=== PATIENT | female | born 1950 | race Caucasian/White ===

== ENCOUNTER → 2016-12-28 | Outpatient (CLI) | payer BC ==
--- NOTE | 2016-12-28 10:33 | RADRPT ---
PROCEDURE: XR pelvis/right hip. CLINICAL INDICATION: Hip pain TECHNIQUE: AP pelvis/AP and lateral right hip views performed COMPARISON: No prior studies are available for comparison. FINDINGS: Anterior and posterior lower lumbosacral fixation. There is severe right hip osteoarthrosis and moderate left hip osteoarthrosis. This is associated wi th joint space narrowing, subchondral sclerosis , subchondral cyst formation and osteophytosis. The re is normal mineralization. No fractures or osseous lesions are identified. The soft tissues are unremarkable. IMPRESSION: Severe right hip osteoarthrosis. Moderate left hip osteoarthrosis RPTAT: HGDB .Andrew Byrd MD, MD Date Time Electronically viewed and signed by .Andrew Byrd MD, on 12/28/2016 10:33 .B/
== END | disposition home or self-care (01) ==
LOC: HKI 08:54
PROVIDERS: ATTEND Orthopaedic Surgery
DX: M16.11 Unilateral primary osteoarthritis, right hip (principal); M25.551 Pain in right hip; M51.36 Other intervertebral disc degeneration, lumbar region; F17.200 Nicotine dependence, unspecified, uncomplicated; Z98.1 Arthrodesis status; Z91.81 History of falling
CPT/HCPCS: 73502; G0463

== ENCOUNTER → 2017-02-17 | Outpatient (CLI) | payer BC | END | disposition home or self-care (01) | LOC: HKI 10:38 | PROVIDERS: ATTEND Orthopaedic Surgery | DX: M25.551 Pain in right hip (principal); M16.11 Unilateral primary osteoarthritis, right hip; M51.36 Other intervertebral disc degeneration, lumbar region; I10 Essential (primary) hypertension | CPT/HCPCS: G0463 ==

== ENCOUNTER 2017-02-23 05:16 | Inpatient (IN) | payer BC ==
--- NOTE | 2017-02-17 17:47 | CONS ---
DATE OF ADMISSION: 02/23/2017 DATE OF CONSULTATION: TYPE OF CONSULTATION: Internal Medicine The patient is being admitted on 02/23/[address] Garrett for planned right total hip replacement. HISTORY OF PRESENT ILLNESS: This is a 66-year-old gentleman with severe DJD who is to undergo the a forementioned surgery. For the details of his orthopedic history, please see the full evaluation pe r Dr. Garrett. Medically, the patient is in good health, has mild hyperlipidemia for which he has discontinued his statin. He has been a smoker, but he did stop it for the past 4 to 6 weeks going into surgery and he is havi ng no withdrawal. There are no recent fevers, chills, sweats, nausea or vomiting. There is no history of any cardiopulmonary disease. He denies any chest pain, angina, syncope, pres yncope or any palpitations. He has recently been found to be somewhat hyperglycemic, but is not on any medication for that and r emains asymptomatic. PAST MEDICAL HISTORY: Please see full dictated problem list. ALLERGIES: NONE. HABITS: Tobacco: None. Alcohol: None. CURRENT MEDICATIONS: [place] as needed. REVIEW OF SYSTEMS: As per HPI. PHYSICAL EXAMINATION: GENERAL: Fit-appearing gentleman in no acute distress. VITAL SIGNS: He is afebrile. Blood pressure 138/76, heart rate 72 and regular, respirations 12 and unlabored. SKIN: Warm, well perfused. HEAD: Normocephalic, atraumatic. EYES: Pupils are round and reactive. Extraocular movements are full. Sclerae anicteric. PHARYNX: No lesions. NECK: JVP is not distended. No adenopathy or thyromegaly. Carotids are 2+, no bruits. BACK: No CVAT. LUNGS: Clear. HEART: S1, S2, regular rate and rhythm, no murmurs. ABDOMEN: Soft and nontender. Normoactive bowel sounds. No organomegaly. EXTREMITIES: No cyanosis, clubbing or edema. Distal pulses are intact. LABORATORY DATA: Please see enclosed. PROBLEM LIST: 1. Degenerative joint disease, right hip, for planned right total hip replacement. 2. Chronic low back pain, status post multiple back surgeries in the past. 3. Most recent back surgery in July of 2007 with hardware exchange. 4. Hyperlipidemia. The patient refuses treatment. 5. Hypertension, currently controlled off medicines. 6. Hyperglycemia. A1c was 6.3 in 10/2016. 7. Degenerative joint disease of the knees as well. RECOMMENDATIONS: 1. The patient is medically cleared for surgery. 2. I will be happy to follow him in the postop period. 3. Sugars will be followed and dealt with accordingly. Dictated By: GLISON ROMANO MD, MM/ELAN Conf#: [id number] DID#: [id number]
[2017-02-22 09:04] VITALS: BMI 32.3
[2017-02-23] VITALS (24 sets, daily range): BP systolic 96–159; BP diastolic 44–82; PULSE 64–92; RESP 12–18; Ht 177.8 cm; Wt 88.5 kg
[~2017-02-23] VITALS: Ht 177.8 cm; Wt 88.5 kg
[2017-02-23] MEDS ORDERED: LACTATED RINGER'S 1,000 ML IV SCH (06:00)
[2017-02-23] MEDS ORDERED: OXYC-209 PO (06:12)
[2017-02-23] MEDS: oxyCODONE (CR) 10 MG TAB [oxyCONTIN] X1 DOSE PO SCH ×2 (06:13→14:59)
--- NOTE | 2017-02-23 06:56 | RADRPT ---
PROCEDURE: XR Pelvis. CLINICAL INDICATION: Hip pain TECHNIQUE: Single AP view of the pelvis. COMPARISON: 02/22 FINDINGS: Lumbosacral fusion hardware is again seen and remains intact. Bone mineralization is decreased. De generative change of the right hip is again seen with superior joint space narrowing, osteophytes, a nd periarticular sclerosis. There is lateral uncovering of the femoral head. No fracture or disloc ation is seen. Vascular calcification is seen. IMPRESSION: Osteoarthritic change of the right hip again seen. RPTAT: HLBE Physician Nick Date Time Electronically viewed and signed by Laura Coe Physician on 02/23/2017 06:55 LE/
[2017-02-23] MEDS ORDERED: PREGABALIN 300 MG PO X1 PO SCH (07:00)
[2017-02-23] MEDS ORDERED: LIDOCAINE 2% (SDV) 5 ML INJ ONE (07:00)
[2017-02-23] MEDS ORDERED: PAIN COCKTAIL-CEFUROXIME IRR SCH ×7 (07:00)
[2017-02-23] MEDS ORDERED: CELECOXIB 400 MG PO X1 DOSE PO SCH (07:00)
[2017-02-23] MEDS ORDERED: EXPAREL NOTE (BUPIVICAINE LIPOSOMAL) XX SCH (07:00)
[2017-02-23] MEDS ORDERED: CEFAZOLIN 2 GM/50 ML (PMX) 50 ML IVPB SCH (07:00)
[2017-02-23] MEDS ORDERED: BUPIVACAINE LIPOSOME/PF 266 MG/20 ML VIAL INFIL SCH (07:00)
[2017-02-23] MEDS ORDERED: traMADOL 50 MG TAB X 1 DOSE PO SCH (07:00)
[2017-02-23] MEDS ORDERED: TRANEXAMIC ACID 750 MG in SOD CHLORIDE 0.9% 100 ML IVPB SCH (07:00)
[2017-02-23] MEDS ORDERED: TRANEXAMIC ACID 750 MG in SOD CHLORIDE 0.9% 92.5 ML IV SCH (07:00)
[2017-02-23] MEDS ORDERED: NEOSTIGMINE 3 MG/3 ML SYRINGE ONE (07:04)
[2017-02-23] MEDS ORDERED: ROCURONIUM 50 MG INJ ONE (07:04)
[2017-02-23] MEDS ORDERED: GLYCOPYRROLATE 0.4 MG INJ ONE (07:04)
[2017-02-23] MEDS ORDERED: CEFAZOLIN 1 GM INJ ONE ×3 (07:04→07:31)
[2017-02-23] MEDS ORDERED: PROPOFOL 20 ML ONE (07:04)
[2017-02-23] MEDS ORDERED: DEXAMETHASONE 4 MG/ML 1 ML INJ ONE (07:05)
[2017-02-23] MEDS ORDERED: FENTAnyl 50 MCG/ML VIAL ONE (07:05)
[2017-02-23] MEDS ORDERED: MIDAZOLAM 1 MG/ML 2 ML INJ ONE (07:05)
[2017-02-23] MEDS ORDERED: ONDANSETRON 4 MG INJ ONE (07:05)
--- NOTE | 2017-02-23 07:13 | HPN ---
Date/Time of Note Date/Time of Note DATE: 02/23/17 TIME: 07:13 Interval H&P Admission Note Pt. seen H&P reviewed: No system changes No change from H&P on 02/17/17 by ELI Rodriguez MD Feb 23, 2017 07:13
[2017-02-23] MEDS ORDERED: PHENYLephrine (100 MCG/ML) 5ML SYG ONE (07:28)
[2017-02-23] MEDS ORDERED: VANCOMYCIN 1 GM INJ ONE (08:01)
[2017-02-23] MEDS ORDERED: POLYMYXIN B 500000 UNIT INJ ONE (08:01)
[2017-02-23] MEDS ORDERED: MEPERIDINE 25 MG INJ IV PRN (08:30)
[2017-02-23] MEDS ORDERED: HYDROmorphONE (0.2 MG/ML) 10ML SYG IV PRN ×2 (08:30)
[2017-02-23] MEDS ORDERED: DIPHENHYDRAMINE 50 MG INJ IV PRN (08:30)
[2017-02-23] MEDS ORDERED: TRIMETHOBENZAMIDE 100 MG/ML VIAL IM PRN (08:30)
[2017-02-23] MEDS ORDERED: hydrALAzine 20 MG INJ IV PRN (08:30)
[2017-02-23] MEDS ORDERED: ONDANSETRON 4 MG INJ IV PRN ×2 (08:30→10:00)
[2017-02-23] MEDS ORDERED: FENTAnyl 50 MCG/ML VIAL IV PRN ×3 (08:30)
[2017-02-23] MEDS ORDERED: EPHEDrine SULFATE 50 MG/5 ML SYG IV PRN (08:30)
[2017-02-23] MEDS ORDERED: MIDAZOLAM 1 MG/ML 2 ML INJ IV PRN (08:30)
[2017-02-23] MEDS ORDERED: LABETALOL HCL 20MG INJ IV PRN (08:30)
[2017-02-23] MEDS ORDERED: BACITRACIN 50000 UNITS INJ IRR ONE (08:43)
[2017-02-23] MEDS ORDERED: EPINEPHrine 100 MCG/10 ML SYG IV ONE (09:51)
[2017-02-23] MEDS ORDERED: HYDROCODONE/APAP (5/325) TAB PO PRN ×2 (10:00)
[2017-02-23] MEDS ORDERED: ASPIRIN (EC) 325 MG TAB PO ONE (10:00)
[2017-02-23] MEDS ORDERED: NACL 0.9% 3 ML SYG IV SCH (10:00)
[2017-02-23] MEDS ORDERED: NA PHOSPHATE/BIPHOS 133 ML ENEMA PR PRN (10:00)
[2017-02-23] MEDS ORDERED: MAGNESIUM HYDROXIDE 30ML CUP PO PRN (10:00)
[2017-02-23] MEDS ORDERED: BISACODYL 10 MG SUPP PR PRN (10:00)
[2017-02-23] MEDS ORDERED: DIPHENHYDRAMINE 25 MG CAP PO PRN (10:00)
--- NOTE | 2017-02-23 10:06 | OPR ---
Date/Time of Note Date/Time of Note DATE: 02/23/17 TIME: 10:05 Operative Report Free Text/Dictation Dictation # [id number] Procedure Date: Feb 24, 2017 Preoperative Diagnosis Right Hip OA Postoperative Diagnosis Same Operation Performed Right Anterior DOMINIQUE Surgeon: ELI DE GUZMAN MD household assistant: AUBRIE NELSON PA-C Anesthesia: general, spinal Anesthesiologist: Ike Greer M.D. Estimated Blood Loss: 250 - 300 ml's Specimens Femoral Head Tubes/Drains Hemovac x 1 Complications: None Pt Condition Post Procedure: stable Disposition: PACU ELI DE GUZMAN MD Feb 23, 2017 10:06
[2017-02-23] MEDS ORDERED: ALBUTEROL 0.083% (NEB) 2.5 MG/3 ML AMP HHN STA (10:11)
[2017-02-23] MEDS ORDERED: ALBUTEROL 0.083% (NEB) 2.5 MG/3 ML AMP ONE (10:13)
--- NOTE | 2017-02-23 10:35 | RADRPT ---
PROCEDURE: XR Pelvis. CLINICAL INDICATION: Hip pain TECHNIQUE: Single AP view performed. COMPARISON: No prior studies are available for comparison. FINDINGS: There is a postoperative right total hip replacement. There is no evidence of loosening of the prost hesis. No hardware failure is identified. There are postoperative soft tissue changes. A drain is i n place. Skin amira are present laterally. Lower lumbar fusion hardware. There is moderate left hip osteoarthrosis. This is associated with joint space narrowing, subchondra l sclerosis and osteophytosis. There is normal osseous mineralization. No fractures or osseous les ions are identified. The soft tissues are unremarkable. IMPRESSION: Postoperative right total hip replacement Postoperative soft tissue changes Moderate left hip osteoarthrosis. RPTAT: HGDB .Andrew Byrd MD, Date Time Electronically viewed and signed by .Andrew Byrd MD, on 02/23/2017 10:34 .B/
--- NOTE | 2017-02-23 10:36 | OPR ---
DATE OF OPERATION: 02/23/2017 PREOPERATIVE DIAGNOSIS: Right hip osteoarthritis. POSTOPERATIVE DIAGNOSIS: Right hip osteoarthritis. PROCEDURE PERFORMED: Right anterior total hip arthroplasty. SURGEON: Eli Garrett MD DIETETIC TECH: CHRISTOPHER Herrera COMPONENTS USED: DePuy size 56 mm Gription Riverhead cup, 56/40 neutral AltrX polyethylene liner, si ze 6 high Actis stem, 40 +1.5 ceramic head. ANESTHESIA: Spinal plus general endotracheal intubation, plus periarticular injection. ANESTHESIOLOGIST: Ike Greer MD ESTIMATED BLOOD LOSS: 300 mL. INTRAVENOUS FLUIDS: 4 liters of crystalloid. SPECIMENS: Femoral head. DRAINS: Hemovac x1. COMPLICATIONS: None. DISPOSITION: The patient tolerated the procedure well and was taken to the recovery room in stable condition. INDICATIONS: The patient is a 66-year-old gentleman who has had progressive worsening pain in the r ight hip with radiographic evidence of severe osteoarthritis. He has failed nonsurgical means of tr eatment to control his pain including activity modifications, pain medications and ambulatory assist devices. Despite these measures, he has had worsening pain. I felt he would benefit from a total hip arthroplasty through an anterior approach. The risks, benefits, and alternatives of the procedure were explained in detail to the patient. I e xplained the risks of the surgery to include, but not be limited to: bleeding and possible need for blood transfusion; infection; pain; stiffness; neurovascular injury with possible numbness, weakness , and/or paralysis anywhere from the hip down to the toes; fracture; instability; dislocation; leg l ength inequality; wear and/or loosening of the prosthesis and possible need for future revision; blo od clots; pulmonary embolism; and anesthetic complications such as heart attack, stroke, GI bleed, p neumonia, and/or . Ample time was allowed for the patient to ask questions, all of which were addressed and answered. The patient understood the risks involved and wished to proceed. Informed c onsent was signed prior to the procedure. PROCEDURE: The patient's right hip was initialed with a marking pen in the preoperative area to iden tify the correct operative site. The patient was brought to the operating room and transferred [facility] the [facility] where a spinal anesthetic was administered. The patient was then anesthetized and intubated. A Umanzor catheter was placed. Both feet were placed into well padd ed boots which were then placed into the leg holders of the traction booms. A timeout was performed to confirm that the right side was the correct operative site. The patient was given 2 g of intrav enous Ancef within one hour prior to the procedure. The operative hip was prepped and draped in the usual sterile fashion. A 10 cm oblique incision was made over the anterior aspect of the hip and carried down through subcu taneous tissue and fat with sharp dissection. The tensor fascia kiana was incised along the length o f the wound. The tensor fascia muscle was retracted laterally and the sartorius medially. The anter ior circumflex vessels were identified and tied off with 2-0 silk suture and coagulated with the Combat Stroke brock Link casing crew. The rectus femoris was elevated off the anterior capsule and an anterior capsu lectomy performed. A femoral neck osteotomy was made and the head removed from the acetabulum. The acetabulum was denuded of cartilage circumferentially, as was the femoral head. Retractors were pl aced around the acetabulum. The remnants of the labrum and ligamentum teres were excised. I reamed the acetabulum to the medial wall and then went into an anatomic position and increased the reamer size in 2 mm increments until I got a good bite and was down to bleeding subchondral bone. The River[place] cup was opened and impacted into the acetabulum and sat flush circumferentially, gettin g a good bite. C-arm imaging showed it had about 40 to 45 degrees of abduction and 20 degrees of ant eversion. The real liner was opened and impacted into the acetabulum and sat flush circumferentiall y. Attention was turned towards the femur. The operative leg was carefully lowered to the floor with the leg adducted. The foot was then exter gavin rotated to approximately 110 degrees. A posteromedial release was performed to optimize expos ure. The femoral hook was placed underneath the proximal femur and the hydraulic lift was then used to elevate the femur up out of the wound. The christel cutter osteotome was used to remove the remai josi overhanging greater trochanter. The femur was then broached, going up in one size increments u ntil it sat flush with the neck cut and a stable fit was achieved. The trial neck and head were ass embled and reduced into the acetabulum. Fluoroscopic imaging showed the components to be in good pos ition and the leg lengths and offsets to be equal. At this point, the trial was dislocated and the trial broach removed. The canal was irrigated and d ried. The real stem was opened and impacted into the femur. The trunnion was irrigated and dried, a nd the real femoral head was impacted onto the trunnion, and reduced into the acetabulum. The soft tissues were infiltrated with a mixture of 150 mg of 0.5% bupivacaine, 8 mg of Duramorph, 3 00 mcg of epinephrine, 30 mg of Toradol, 100 mcg of clonidine, 750 mg of cefuroxime and 86 mL of nor mal saline, followed by an injection of 266 mg of liposomal bupivacaine. At this point the hip was irrigated with a mixture of Betadine/saline and then antibiotic saline with pulsatile lavage. A Hem ovac drain was placed in the deep portion of the wound and brought out the anterolateral thigh. Ther e was good hemostasis. The tensor fascia kiana was repaired with a running #1 Vicryl. The deep fat layer was irrigated and closed with 2-0 Stratafix and the subcutaneous layer closed with 3-0 Vicryl and the skin was closed with amira and then sealed with Dermabond. The drain was secured with 3-0 nylon. The sponge and needle counts were correct at the end of the case. The wound was covered with an occ lusive dressing. The patient was awakened, extubated, and taken to the recovery room in stable cond ition. Dictated By: ELI TEJADA/ELAN Conf#: [id number] DID#: [id number]
--- NOTE | 2017-02-23 10:36 | RADRPT ---
PROCEDURE: XR right hip. CLINICAL INDICATION: Hip pain TECHNIQUE: AP view available for review. COMPARISON: 02/23/2017 FINDINGS: There is a postoperative right total hip replacement. There is no evidence of loosening of the prost hesis. There is no evidence of hardware failure. There is normal mineralization, architecture and al ignment. No fractures are identified. No osseous lesions are present. The joints are unremarkable . There are postoperative soft tissue changes. A drain is in place. Skin amira are present late rally. IMPRESSION: Postoperative right total hip replaced Postoperative soft tissue changes RPTAT: HGDB .Andrew Byrd MD, Date Time Electronically viewed and signed by .Andrew Byrd MD, on 02/23/2017 10:35 .B/
[2017-02-23 10:37] LABS: POTASSIUM 3.7 mmol/L (3.5-5.1)
[2017-02-23 10:38] LABS: HEMOGLOBIN 11.6 g/dl (14.0-18.0)
[2017-02-23 10:40] LABS: CREATININE 0.49 mg/dl (0.61-1.24)
--- NOTE | 2017-02-23 10:42 | PN ---
Date/Time of Note Date/Time of Note DATE: 02/23/17 TIME: 10:41 Assessment/Plan Lines/Catheters IV Catheter Type (from Nrsg): Peripheral IV Assessment/Plan Assessment/Plan Stable POD #1, s/p right anterior DOMINIQUE -cont abx -pain meds as needed -ASA/SCDs for DVT prophylaxis -OOB with PT -check AM labs -monitor drain -d/c awan in AM XR of the right hip is pending at this time Subjective 24 Hr Interval Summary Stable in PACU. Drowsy from anesthesia. Denies any significant pain. Moving all extremities. Exam/Review of Systems Vital Signs Vitals Vital Signs Date Time Temp Pulse Resp B/P Pulse Ox O2 Delivery O2 Flow Rate FiO2 02/23/17 10:15 93 18 Nasal Cannula 2.0 02/23/17 10:00 98.7 02/23/17 05:50 159/82 94 Intake and Output 02/22/17 02/22/17 02/23/17 15:00 23:00 07:00 Intake Total 0 ml Balance 0 ml Exam Free Text/Dictation Hemovac: minimal Dressing dry Incision clean, dry, and intact without redness or drainage 5/5 Quadriceps, Tibialis Anterior, EHL, Gastroc, Soleus, Peroneals Normal sensation Palpable DT/PT, CR <2 sec No distal edema Results Result Diagram: 02/23/17 1015 AUBRIE NELSON PA-C Feb 23, 2017 10:42
[2017-02-23] MEDS: CEFAZOLIN 2 GM/50 ML (PMX) 50 ML IVPB SCH ×2 (11:24→18:13)
--- NOTE | 2017-02-23 12:33 | CONS ---
Date/Time of Note Date/Time of Note DATE: 02/23/17 TIME: 12:28 Assessment/Plan Assessment/Plan Problems: (1) Degenerative joint disease of right hip Comment: is now s/p Rt THR... doing well (2) Hip joint replacement status Comment: s/p R THR... seen in PACU... hemodyn stable (3) HTN (hypertension) Comment: currently controlled off meds (4) Hyperlipidemia Comment: refused meds in the past... so follow (5) Hyperglycemia Comment: new dx.. on diet now... mild Consultation Date/Type/Reason Admit Date/Time Feb 23, 2017 at 05:16 Date of Consultation: Feb 23, 2017 Type of Consultation: medicine Reason for Consultation post op care Hx of Present Illness pt seen post op in the PACU, s/p Rt THR> doing well... no cp or sob.. VSS... min pain Constitutional: no complaints Eyes: no complaints ENT: no complaints Respiratory: no complaints Cardiovascular: no complaints Gastrointestinal: no complaints Genitourinary: no complaints Skin: no complaints Neurologic: no complaints Social History Smoking Status: Former smoker Exam/Review of Systems Vital Signs Vitals Vital Signs Date Time Temp Pulse Resp B/P Pulse Ox O2 Delivery O2 Flow Rate FiO2 02/23/17 11:53 72 15 111/59 94 Nasal Cannula 3.0 02/23/17 10:00 98.7 Exam Head: normocephalic Eyes: nl conjunctiva ENMT: nl external ears & nose Neck: supple Respiratory: clear to auscultation Cardiovascular: regular rate and rhythm Gastrointestinal: nl liver, spleen, non-tender, soft Musculoskeletal: nl extremities to inspection (drain in place Rt hip... intact n/v RLE) Results Result Diagram: 02/23/17 1015 02/23/17 1015 Results 24 hrs Laboratory Tests Test 02/23/17 10:08 02/23/17 10:15 Bedside Glucose 166 Hemoglobin 11.6 L Hematocrit 35.0 L Sodium Level 137 Potassium Level 3.7 Chloride Level 104 Carbon Dioxide Level 26 Anion Gap 11 Blood Urea Nitrogen 12 Creatinine 0.49 L Glucose Level 161 Calcium Level 8.0 L Medications Medications Current Medications Lactated Ringer's (Lr) 1,000 ml @ 100 mls/hr Q10H IV Last administered on 02/23t 06:15; Admin Dose 100 MLS/HR; Start 02/23/17 at 06:00; Stop 02/23/17 at 15 :59 Oxycodone HCl (Oxycontin) 10 mg PRE-OP PO Last administered on 02/23/17 06:13 ; Admin Dose 10 MG; Start 02/23/17 at 07:00; Stop 02/23/17 at 16:00 Pregabalin (Lyrica) 300 mg PRE-OP PO Last administered on 02/23/17 06:12; Admin Dose 300 MG; Start 02/23/17 at 07:00; Stop 02/23/17 at 16:00 Celecoxib (Celebrex) 400 mg PRE-OP PO Last administered on 02/23/17 06:13; Admin Dose 400 MG; Start 02/23/17 at 07:00; Stop 02/23/17 at 16:00 Tramadol HCl 50 mg 50 mg PRE-OP PO Last administered on 02/23/17 06:16; Admin Dose 50 MG; Start 02/23/17 at 07:00; Stop 02/23/17 at 16:00 Cefazolin Sodium/ Dextrose 50 ml @ 100 mls/hr PRE-OP IVPB ; Start 02/23/17 at 07:00; Stop 02/23/17 at 16:00 Tranexamic Acid 750 mg/Sodium Chloride 100 ml @ 200 mls/hr PRE-OP IV Last administered on 02/23/17 07:12; Start 02/23/17 at 07:00; Stop 02/23/17 at 16:00 Tranexamic Acid/ Sodium Chloride 107.5 ml @ 200 mls/hr INTRA-OP IVPB ; Start at 07:00; Stop 02/23/17 at 16:00 Bupivacaine HCl/ Morphine Sulfate/ Epinephrine/ Ketorolac Tromethamine/ Clonidine/Sodium Chloride/ Cefuroxime Sodium (Marcaine 0.5% (Sdv)/Duramorph/ EPINEPHrine/ Toradol/Duraclon/ NS/Zinacef) INTRA-OP IRR Last administered on 09:12; Admin Dose 90.3 ML; Start 02/23/17 at 07:00; Stop 02/23/17 at 16 :00 Bupivacaine Liposome (Exparel 266 Mg/ 20 ml Vial) 266 mg INTRA-OP INFIL Last administered on 02/23/17 09:12; Admin Dose 266 MG; Start 02/23/17 at 07:00; Stop 02/23/17 at 16:00 Miscellaneous Information 1 ea 1 ea NOTE XX ; Start 02/23/17 at 07:00; Stop 02/27 at 06:59 Lactated Ringer's (Lr) 1,000 ml @ 125 mls/hr Q8H IV ; Start 02/23/17 at 09:53 Celecoxib (Celebrex) 200 mg DAILY PO ; Start 02/24/17 at 09:00 Tramadol HCl (Ultram) 50 mg Q6 PO ; Start 02/23/17 at 12:00; Stop 02/26/17 at 11 :59 Acetaminophen/ Hydrocodone Bitart ([place] (5/325)) 1 tab Q4H PRN PO PAIN LEVEL 1 -3; Start 02/23/17 at 10:00 Acetaminophen/ Hydrocodone Bitart ([place] (5/325)) 2 tab Q4H PRN PO PAIN LEVEL 4 -7; Start 02/23/17 at 10:00 Hydromorphone HCl 1 mg 1 mg Q3H PRN IV PAIN LEVEL 8-10; Start 02/23/17 at 10:00 Cefazolin Sodium/ Dextrose (Ancef 2 Gm/50 ml (Pmx)) 50 ml @ 100 mls/hr Q8H IVPB Last administered on 02/23/17 11:24; Admin Dose 100 MLS/HR; Start at 10:00; Stop 02/24/17 at 02:29 Ondansetron HCl (Zofran Inj) 4 mg Q6H PRN IV NAUSEA AND/OR VOMITING; Start at 10:00 Bisacodyl (Dulcolax Supp) 10 mg Q12H PRN RI CONSTIPATION; Start 02/23/17 at 10: 00 Magnesium Hydroxide (Milk Of Mag) 30 ml BID PRN PO CONSTIPATION; Start at 10:00 Sodium Biphosphate/ Sodium Phosphate (Fleet Enema) 133 ml DAILY PRN RI CONSTIPATION; Start 02/23/17 at 10:00 Docusate Sodium (Colace) 100 mg BID PO ; Start 02/23/17 at 21:00 Diphenhydramine HCl (Benadryl) 25 mg Q6H PRN PO PRURITUS; Start 02/23/17 at 10: 00 Aspirin (Ecotrin) 325 mg BID PO ; Start 02/24/17 at 09:00 Pantoprazole (Protonix Tab) 40 mg BID@06,18 PO ; Start 02/23/17 at 18:00 GILSON ROMANO MD Feb 23, 2017 12:33
[2017-02-23] MEDS: traMADol 50 MG TAB PO SCH ×3 (12:56→23:30)
[2017-02-23] MEDS ORDERED: TRANEXAMIC ACID 890 MG in SOD CHLORIDE 0.9% 100 ML IVPB ONE ×2 (13:00→16:00)
[2017-02-23] MEDS: HYDROmorphONE (0.2 MG/ML) 10ML SYG IV PRN ×2 (13:11→13:46)
--- NOTE | 2017-02-23 13:32 | RADRPT ---
PROCEDURE: XR fluoro guidance CLINICAL INDICATION: Right hip replacement TECHNIQUE: Intraoperative fluoroscopy provided for right hip arthroplasty. 8 images submitted. T otal fluoro time 0.8-minute. COMPARISON: None FINDINGS: Right hip arthroplasty performed. Lumbosacral fusion hardware also noted. See operative report for details. IMPRESSION: Intraoperative fluoroscopy for right hip arthroplasty. RPTAT: VV .Anam Saenz MD, MD Date Time Electronically viewed and signed by .Anam Saenz MD, on 02/23/2017 13:32 .O/
[2017-02-23] MEDS ORDERED: ETOMIDATE 20 MG INJ ONE (14:17)
[2017-02-23] MEDS ORDERED: PROPOFOL 100 ML ONE (14:17)
[2017-02-23 14:51] LABS: ADD UMIC YES; URINE BILIRUBIN (Dip) NEGATIVE (NEGATIVE); URINE BLOOD (Dip) NEGATIVE (NEGATIVE); URINE COLOR LT. YELLOW (YELLOW); URINE GLUCOSE (Dip) NEGATIVE (NEGATIVE); URINE KETONES (Dip) NEGATIVE (NEGATIVE); URINE LEUKOCYTE ESTERASE (Dip) NEGATIVE (NEGATIVE); URINE NITRITE (Dip) NEGATIVE (NEGATIVE); URINE TOTAL PROTEIN (Dip) 1+ (NEGATIVE); URINE UROBILINOGEN (Dip) 0.2 E.U./dL (0.1-1.0)
[2017-02-23] MEDS ORDERED: BACITRACIN 50000 UNITS INJ ONE (14:55)
[2017-02-23 14:59] LABS: BACTERIA,URINE MANY; MUCUS,URINE MANY
[2017-02-23] MEDS: HYDROmorphONE 1 MG/ML SYG IV PRN ×2 (16:30→21:26)
[2017-02-23] MEDS: LACTATED RINGER'S 1,000 ML IV SCH ×2 (16:30→17:53)
[2017-02-23] MEDS: PANTOPRAZOLE (EC) 40 MG TAB PO SCH (18:12)
[2017-02-23] MEDS: DOCUSATE SODIUM 100 MG CAP PO SCH (20:41)
[2017-02-24 00:06] VITALS: BP 126/60; RESP 18
[2017-02-24] MEDS: LACTATED RINGER'S 1,000 ML IV SCH ×2 (01:42→09:53)
[2017-02-24] MEDS: HYDROmorphONE 1 MG/ML SYG IV PRN (01:58)
[2017-02-24] MEDS: CEFAZOLIN 2 GM/50 ML (PMX) 50 ML IVPB SCH (04:06)
[2017-02-24 05:29] LABS: HEMATOCRIT 36.8 % (42.0-52.0); HEMOGLOBIN 12.3 g/dl (14.0-18.0)
[2017-02-24 05:30] VITALS: BP 141/71; PULSE 75; RESP 19
[2017-02-24 05:36] LABS: POTASSIUM 4.9 mmol/L (3.5-5.1)
[2017-02-24 05:39] LABS: CREATININE 0.52 mg/dl (0.61-1.24)
[2017-02-24 05:40] LABS: CALCIUM 8.6 mg/dl (8.4-10.2)
[2017-02-24] MEDS: PANTOPRAZOLE (EC) 40 MG TAB PO SCH ×2 (06:11→17:45)
[2017-02-24] MEDS: traMADol 50 MG TAB PO SCH ×4 (06:11→23:35)
[2017-02-24 06:13] LABS: ADD UMIC NO; URINE BILIRUBIN (Dip) NEGATIVE (NEGATIVE); URINE BLOOD (Dip) NEGATIVE (NEGATIVE); URINE COLOR LT. YELLOW (YELLOW); URINE GLUCOSE (Dip) NEGATIVE (NEGATIVE); URINE KETONES (Dip) NEGATIVE (NEGATIVE); URINE LEUKOCYTE ESTERASE (Dip) NEGATIVE (NEGATIVE); URINE NITRITE (Dip) NEGATIVE (NEGATIVE); URINE TOTAL PROTEIN (Dip) NEGATIVE (NEGATIVE); URINE UROBILINOGEN (Dip) 0.2 E.U./dL (0.1-1.0)
[2017-02-24 08:00] VITALS: BP 143/70; PULSE 82; RESP 16
--- NOTE | 2017-02-24 08:47 | PN ---
Date/Time of Note Date/Time of Note DATE: 02/24/17 TIME: 08:45 Assessment/Plan Lines/Catheters IV Catheter Type (from Nrsg): Peripheral IV Umanzor in Place (from Nrsg): Yes Assessment/Plan Assessment/Plan Stable POD #1, s/p right anterior DOMINIQUE -d/c abx -pain meds as needed -ASA/SCDs -OOB with PT -check AM labs -drain removed -discharge planning. Will plan to go home today. Subjective 24 Hr Interval Summary No acute overnight events. Denies any hip pain but complaining of pain from his chronic low back pain. VSS, afebrile. Did not start PT yesterday. Will plan to go home upon discharge. Exam/Review of Systems Vital Signs Vitals Vital Signs Date Time Temp Pulse Resp B/P Pulse Ox O2 Delivery O2 Flow Rate FiO2 02/24/17 08:00 97.7 82 16 143/70 93 02/24/17 05:30 Nasal Cannula 2.0 Intake and Output 02/23/17 02/23/17 02/24/17 15:00 23:00 07:00 Intake Total 4100 ml 1821.4 ml 1750 ml Output Total 400 ml 2600 ml 1840 ml Balance 3700 ml -778.6 ml -90 ml Exam Free Text/Dictation Hemovac: 240cc Dressing dry Incision clean, dry, and intact without redness or drainage 5/5 Quadriceps, Tibialis Anterior, EHL, Gastroc, Soleus, Peroneals Normal sensation Palpable DT/PT, CR <2 sec No distal edema Results Result Diagram: 02/24/17 0450 02/24/17 0450 AUBRIE NELSON PA-C Feb 24, 2017 08:47
[2017-02-24] MEDS ORDERED: OXYCODONE/ACETAMINOPHEN (10/325) TAB PO PRN (09:00)
[2017-02-24] MEDS: CELECOXIB 200 MG CAP PO SCH (09:24)
[2017-02-24] MEDS: DOCUSATE SODIUM 100 MG CAP PO SCH ×2 (09:24→20:29)
[2017-02-24] MEDS: ASPIRIN (EC) 325 MG TAB PO SCH ×2 (09:24→21:30)
[2017-02-24] MEDS: OXYCODONE/ACETAMINOPHEN (10/325) TAB PO PRN ×4 (09:26→21:28)
--- NOTE | 2017-02-24 11:15 | CONS ---
Date/Time of Note Date/Time of Note DATE: 02/24/17 TIME: 11:13 Assessment/Plan Assessment/Plan Additional Assessment/Plan 1. Stable post op right hip replacement 2. Hx DM, sl elev sugars, will start ac insulin coverage Consultation Date/Type/Reason Admit Date/Time Feb 23, 2017 at 05:16 Initial Consult Date 02/23/17 Type of Consultation: medicine Detailed Summary Respiratory: no complaints, No shortness of breath Cardiovascular: No chest pain, No orthopenea Gastrointestinal: no complaints Musculoskeletal: bone/joint pain (mild right hip pain) Exam/Review of Systems Vital Signs Vitals Vital Signs Date Time Temp Pulse Resp B/P Pulse Ox O2 Delivery O2 Flow Rate FiO2 02/24/17 08:00 97.7 82 16 143/70 93 02/24/17 05:30 Nasal Cannula 2.0 Intake and Output 02/23/17 02/23/17 02/24/17 15:00 23:00 07:00 Intake Total 4100 ml 1821.4 ml 1750 ml Output Total 400 ml 2600 ml 1840 ml Balance 3700 ml -778.6 ml -90 ml Exam Neck: No jvd Respiratory: clear to auscultation Cardiovascular: regular rate and rhythm Gastrointestinal: soft Extremities: No edema (and no calf tend) Results Result Diagram: 02/24/17 0450 02/24/17 0450 Results 24 hrs Laboratory Tests Test 02/24/17 04:50 02/24/17 05:00 Hemoglobin 12.3 L Hematocrit 36.8 L Sodium Level 140 Potassium Level 4.9 Chloride Level 106 Carbon Dioxide Level 27 Anion Gap 12 Blood Urea Nitrogen 10 Creatinine 0.52 L Glucose Level 145 Hemoglobin A1c 6.2 H Calcium Level 8.6 Urine Color LT. YELLOW Urine Clarity CLEAR Urine pH 7.0 Urine Specific [place] 1.010 Urine Ketones NEGATIVE Urine Nitrite NEGATIVE Urine Bilirubin NEGATIVE Urine Urobilinogen 0.2 E.U./dL Urine Leukocyte Esterase NEGATIVE Urine Hemoglobin NEGATIVE Urine Glucose NEGATIVE Urine Total Protein NEGATIVE Medications Medications Current Medications Miscellaneous Information 1 ea 1 ea NOTE XX ; Start 02/23/17 at 07:00; Stop 02/27 at 06:59 Lactated Ringer's (Lr) 1,000 ml @ 125 mls/hr Q8H IV Last administered on t 01:42; Admin Dose 125 MLS/HR; Start 02/23/17 at 09:53 Celecoxib (Celebrex) 200 mg DAILY PO Last administered on 02/24/17 09:24; Admin Dose 200 MG; Start 02/24/17 at 09:00 Tramadol HCl (Ultram) 50 mg Q6 PO Last administered on 02/24/17 06:11; Admin Dose 50 MG; Start 02/23/17 at 12:00; Stop 02/26/17 at 11:59 Ondansetron HCl (Zofran Inj) 4 mg Q6H PRN IV NAUSEA AND/OR VOMITING; Start at 10:00 Bisacodyl (Dulcolax Supp) 10 mg Q12H PRN [place] CONSTIPATION; Start 02/23/17 at 10: 00 Magnesium Hydroxide (Milk Of Mag) 30 ml BID PRN PO CONSTIPATION; Start at 10:00 Sodium Biphosphate/ Sodium Phosphate (Fleet Enema) 133 ml DAILY PRN [place] CONSTIPATION; Start 02/23/17 at 10:00 Docusate Sodium (Colace) 100 mg BID PO Last administered on 02/24/17 09:24; Admin Dose 100 MG; Start 02/23/17 at 21:00 Diphenhydramine HCl (Benadryl) 25 mg Q6H PRN PO PRURITUS; Start 02/23/17 at 10: 00 Aspirin (Ecotrin) 325 mg BID PO Last administered on 02/24/17 09:24; Admin Dose 325 MG; Start 02/24/17 at 09:00 Pantoprazole (Protonix Tab) 40 mg BID@18 PO Last administered on 02/24/17 06:11; Admin Dose 40 MG; Start 02/23/17 at 18:00 Oxycodone/ Acetaminophen (Endocet (10/ 325)) 1 tab Q4H PRN PO PAIN LEVEL 1-5; Start 02/24/17 at 09:00 Oxycodone/ Acetaminophen (Endocet (10/ 325)) 2 tab Q4H PRN PO PAIN LEVEL 6-10 Last administered on 02/24/17 09:26; Admin Dose 2 TAB; Start 02/24/17 at 09:00 NITZA JEFF MD Feb 24, 2017 11:15
--- NOTE | 2017-02-24 13:09 | PDOCDIS ---
Discharge Instructions DIAGNOSIS Discharge Diagnosis: s/p right anterior DOMINIQUE CONDITION Patient Condition: Good HOME CARE INSTRUCTIONS: Diet Instructions: Regular ACTIVITY: Activity Restrictions: Slowly Increase Activity Rest between Activity Avoid heavy lifting Do not operate Machinery Do not operate Power Tool Avoid Heavy Housework Keep Limb Elevated Bathing Restrictions: Shower FOLLOW UP/APPOINTMENTS Appointments follow up in the office on 03/06/17 OTHER ORDERS: Other Orders: S/P Anterior DOMINIQUE Physical Therapy: Three times per week at home x 2 weeks Daily in Rehab/SNF WB STATUS: WBAT Strengthening exercises for both upper and un-operated lower extremities. 1. Gait training with front wheeled walker 2. Wide base gait, no pivot turns. 3. Abductor strengthening. 4. Quadriceps and hamstring strengthening. 5. May switch to cane in contra lateral hand 6 weeks after surgery. 6. Physical Therapy can open case if nursing is not available. 7. Ice Packs while at rest to surgical wound for 20 minutes, 3 times/day. 8. Patient requires mobile SCDs to reduce risk of developing DVT following DOMINIQUE. Patient will use the mobile SCDs for 30 days postoperatively. Hip Precautions: No posterior hip precautions. Bathing assistance by home health aide twice weekly if Medicare patient. Occupational Therapy: Evaluation for assistive devices and ADL training. Wound Care: Keep incision dry & covered with Tegaderm until first visit with Dr. Garrett Anticoagulation Orders: Enteric Coated Aspirin 325 mg po bid x 6 weeks from date of surgery Follow-up:Call for an appointment with Dr. Garrett in 1 week after discharged from hospital at DME Orders: F[employer]HA[employer], 3-in-1 Com[employer], Mobile SCDs AUBRIE NELSON PA-C Feb 24, 2017 13:09
[2017-02-24] MEDS ORDERED: OXYC-431 PO (13:11)
[2017-02-24] MEDS ORDERED: TRAM50TA2 PO (13:11)
[2017-02-24] MEDS ORDERED: ASPI325T32 PO (13:11)
[2017-02-24] MEDS ORDERED: PANT40TA4 PO (13:11)
[2017-02-24] MEDS: INSULIN ASPART [NOVOLOG] 3 ML PEN SC SCH (17:25)
[2017-02-24 19:35] VITALS: BP 137/69; RESP 18
[2017-02-25] MEDS: OXYCODONE/ACETAMINOPHEN (10/325) TAB PO PRN ×2 (03:53→10:31)
[2017-02-25 05:16] LABS: POTASSIUM 4.6 mmol/L (3.5-5.1)
[2017-02-25 05:19] LABS: CALCIUM 8.5 mg/dl (8.4-10.2); CREATININE 0.55 mg/dl (0.61-1.24)
[2017-02-25 05:20] LABS: MAGNESIUM 1.8 mg/dl (1.7-2.5); PHOSPHORUS 3.7 mg/dl (2.5-4.9)
[2017-02-25] MEDS: traMADol 50 MG TAB PO SCH ×2 (05:41→13:00)
[2017-02-25] MEDS: PANTOPRAZOLE (EC) 40 MG TAB PO SCH (05:41)
[2017-02-25] MEDS: INSULIN ASPART [NOVOLOG] 3 ML PEN SC SCH ×2 (07:20→11:10)
[2017-02-25 08:02] VITALS: BP 147/72; RESP 16
[2017-02-25] MEDS: DOCUSATE SODIUM 100 MG CAP PO SCH (08:32)
[2017-02-25] MEDS: CELECOXIB 200 MG CAP PO SCH (08:32)
[2017-02-25] MEDS: ASPIRIN (EC) 325 MG TAB PO SCH (08:32)
[2017-02-25 09:00] LABS: HEMATOCRIT 35.9 % (42.0-52.0); HEMOGLOBIN 11.9 g/dl (14.0-18.0)
--- NOTE | 2017-02-25 09:05 | PN ---
Date/Time of Note Date/Time of Note DATE: 02/25/17 TIME: 09:03 Assessment/Plan Lines/Catheters IV Catheter Type (from Nrsg): Saline Lock Umanzor in Place (from Nrsg): Yes Assessment/Plan Assessment/Plan Stable POD #2, s/p right anterior DOMINIQUE -pain meds as needed -ASA/SCDs for DVT prophylaxis -OOB with PT -dressing changed -d/c home today -follow up in the office in 1 week Subjective 24 Hr Interval Summary No acute overnight events. Pain better controlled with percocet. Progressing well with PT. VSS, afbebrile. Would like to go home today. Exam/Review of Systems Vital Signs Vitals Vital Signs Date Time Temp Pulse Resp B/P Pulse Ox O2 Delivery O2 Flow Rate FiO2 02/25/17 08:02 97.8 60 16 147/72 100 02/24/17 05:30 Nasal Cannula 2.0 Intake and Output 02/24/17 02/24/17 02/25/17 15:00 23:00 07:00 Intake Total 1360 ml 1200 ml Output Total 1600 ml 1650 ml Balance -240 ml -450 ml Exam Free Text/Dictation Dressing dry Incision clean, dry, and intact without redness or drainage 5/5 Quadriceps, Tibialis Anterior, EHL, Gastroc, Soleus, Peroneals Normal sensation Palpable DT/PT, CR <2 sec No distal edema Results Result Diagram: 02/25/17 0435 02/25/17 0435 AUBRIE NELSON PA-C Feb 25, 2017 09:05
--- NOTE | 2017-02-25 17:51 | DS ---
DATE OF ADMISSION: 02/23/2017 DATE OF DISCHARGE: 02/25/2017 CONDITION UPON DISCHARGE: Stable ADMITTING DIAGNOSIS: Right hip osteoarthritis. DISCHARGE DIAGNOSIS: Status post right anterior total hip arthroplasty. PROCEDURE PERFORMED: Right anterior total hip arthroplasty. HOSPITAL COURSE: This is a 66-year-old male who was seen in the clinic complaining of right hip pain. X-rays demonstrated advanced osteoarthritis of the right hip and it was thought to benefit from a right anterior total hip arthroplasty. On 02/23/2017, the patient was admitted and taken to the operating room where he underwent a right anterior total hip arthroplasty. There were no intraoperative complications. The patient tolerated the procedure well. He was taken to the recovery room in stable condition. Pain was well controlled with oral pain medication. He was started on aspirin and SCDs for DVT prophylaxis. He remained hemodynamically stable and neurovascularly intact throughout his hospital stay. He began physical therapy on postoperative day one, making good progress, and was ultimately deemed stable for discharge on postoperative day 2. Prior to discharge, the incision was inspected and noted to be clean, dry and intact. Dressing changes were done prior to patient going home. LABORATORY ANALYSIS: Hemoglobin 11.9, hematocrit 35.9. Chemistry panel was within normal limits. DISCHARGE MEDICATIONS: 1. Percocet 10/325 mg 2. Tramadol 50 mg 3. Aspirin 325 mg. 4. Protonix 40 mg. 5. Additionally, the patient is to resume all of his normal home medications. DISCHARGE INSTRUCTIONS: The patient will be discharged home in stable condition. He is to resume a normal diet. Activity includes weightbearing as tolerated on the right lower extremity. He will begin physical therapy with home health. He will be discharged home with the medications noted above and is to resume all of his normal home medications. The patient is to call the office or go to the emergency room for any concerns including increased redness , swelling, drainage, fever or any concerns regarding the operation or site of incision. FOLLOWUP: The patient will need to follow up in the office on 03/06/2017. Dictated By: AUBRIE JACOBSON/ELAN Conf#: [id number] DID#: [id number] MTDD
== END 2017-02-25 15:50 | disposition home health service (06) | DRG 470 ==
LOC: REC 05:16 → EDSTATUS 07:00 → MS1 15:35
PROVIDERS: ADMIT Orthopaedic Surgery; ATTEND Orthopaedic Surgery
PROC: 0SR904A Replacement of Right Hip Joint with Ceramic on Polyethylene Synthetic Substitute, Uncemented, Open Approach (ICD-10-PCS; principal; 2017-02-23 07:00)
DX: M16.11 Unilateral primary osteoarthritis, right hip (principal); I10 Essential (primary) hypertension; E78.5 Hyperlipidemia, unspecified; M17.0 Bilateral primary osteoarthritis of knee; G89.29 Other chronic pain; M54.9 Dorsalgia, unspecified; E11.9 Type 2 diabetes mellitus without complications
CPT/HCPCS: 72170; 73500; 73530; 80048; 81001; 81003; 82962; 83036; 83735; 84100; 85014; 85018; 86850; 86900; 86901; 86920; 87081; 87086; 94664; 97110; 97116; 97162; 97530; C1776; J0690; J1100; J1170; J1815; J2250; J2370; J2405; J2710; J3010; J3370; J7120

== ENCOUNTER → 2017-03-06 | Outpatient (CLI) | payer BC ==
[~2017-03-06] MED LIST: ASPI325T32 PO; OXYC-431 PO; PANT40TA4 PO; TRAM50TA2 PO
--- NOTE | 2017-03-06 12:38 | HKNOTE ---
DATE OF SERVICE: 03/06/2017 INTERVAL HISTORY: The patient presents today for his first postoperative evaluation. He is 10 days status post right anterior total hip arthroplasty. He is doing well overall. He is having some mi ld pain, but is predominantly of his back. He does have chronic pain issues and takes Percocet 5/32 5 mg daily. He has been taking those postoperatively as well. He is also taking the aspirin twice daily for DVT prophylaxis. He is doing physical therapy with home health. He presents today for hi s first postoperative evaluation. PHYSICAL EXAMINATION: GENERAL: Today, he is alert and oriented x4, and in no acute distress. He is ambulating with a fro nt-wheeled walker. EXTREMITIES: Exam of the incision demonstrates it to be clean, dry, and intact. Justin are in nicolasa ce. He has no pain with passive range of motion of the right hip. He does have some moderate edema and soft tissue swelling distally. Homans sign is negative. Compartments are soft. He is neurova scularly intact distally. IMAGING: X-rays of the right hip are obtained today and reviewed by me. They demonstrate good alma omic alignment with no fracture or dislocation identified. ASSESSMENT: Ten days status post right anterior total hip arthroplasty. PLAN: The justin were removed today and Steri-Strips were applied. His prescription for Percocet 10/325 mg was refilled today. Given the amount of lower extremity swelling, we will obtain a stat v enous Doppler to rule out DVT. He is to continue aspirin twice daily for 6 weeks for DVT prophylaxi s. If his ultrasound is negative, we will see him back in 4 weeks for repeat evaluation. He is to call the office in the meantime if he has any concerns. Dictated By: AUBRIE WHITE for ELI JACOBSON/ELAN Conf#: [id number] DID#: [id number]
--- NOTE | 2017-03-06 16:47 | RADRPT ---
PROCEDURE: XR Right hip and pelvis. CLINICAL INDICATION: Right hip pain. Pelvic pain. Postop. TECHNIQUE: Two views. Frontal pelvis and frontal right hip. COMPARISON: 02/23/2017. FINDINGS: There is no fracture or dislocation. The soft tissues are normal. There is a right hip total arthroplasty which appears satisfactory. There are mild degenerative changes of the left hip with osteophytes noted. There is no lytic or blastic lesion. There has been prior lower lumbosacral spine surgery with pedicle screws, connecting rods, and a fus ion screw at L5-S1. IMPRESSION: 1. Satisfactory postoperative appearance of the right hip. 2. Mild degenerative changes of the left hip. 3. Prior lumbosacral spine surgery. RPTAT: QQ .Master Silverman MD, MD Date Time Electronically viewed and signed by .Master Silverman MD, on 03/06/2017 16:47 .R/
== END | disposition home or self-care (01) ==
LOC: EDSEX → HKI 10:05
PROVIDERS: ATTEND Orthopaedic Surgery
DX: Z47.1 Aftercare following joint replacement surgery (principal); Z96.641 Presence of right artificial hip joint
CPT/HCPCS: 73502

== ENCOUNTER → 2017-04-03 | Outpatient (CLI) | payer BC ==
--- NOTE | 2017-04-03 11:51 | RADRPT ---
PROCEDURE: XR pelvis/right hip. CLINICAL INDICATION: Hip pain TECHNIQUE: AP pelvis/lateral right hip view performed. COMPARISON: 03/06/2017 FINDINGS: There is a right total hip replacement. There is no evidence of loosening of the prosthesis. No hard hicks failure is identified. Lower lumbar posterior fixation with pedicle screws and connecting rods. L5-S1 fusion screw. There is moderate left hip osteoarthrosis. This is associated with joint space narrowing, subchondra l sclerosis and osteophytosis. There is normal osseous mineralization. No fractures or osseous les ions are identified. The soft tissues are unremarkable. IMPRESSION: Right total hip replacement. Moderate left hip osteoarthrosis. RPTAT: HGDB .Andrew Byrd MD, Date Time Electronically viewed and signed by .Andrew Byrd MD, on 04/03/2017 11:51 .B/
== END | disposition home or self-care (01) ==
LOC: HKI 10:16
PROVIDERS: ATTEND Orthopaedic Surgery
DX: Z47.1 Aftercare following joint replacement surgery (principal); M16.11 Unilateral primary osteoarthritis, right hip; Z96.641 Presence of right artificial hip joint
CPT/HCPCS: 73502

== ENCOUNTER → 2017-06-02 | Outpatient (CLI) | payer BC ==
--- NOTE | 2017-06-02 16:43 | RADRPT ---
PROCEDURE: Left knee radiographs. CLINICAL INDICATION: Left knee pain. TECHNIQUE: Four views. Weight bearing. Frontal, lateral, oblique, and patellar view. COMPARISON: No prior studies are available for comparison. FINDINGS: There is no acute fracture. There is an old healed fracture of the proximal tibia. Vascular calcifications are present consistent with atherosclerosis. There is no joint effusion. There are degenerative changes with lateral joint compartment narrowing and subchondral sclerosis. There is no lytic or blastic lesion. There is no radiopaque foreign body. IMPRESSION: 1. Old healed fracture of the proximal tibia. 2. Atherosclerosis. 3. Moderate degenerative change predominately involving the lateral joint compartment. RPTAT: QQ .Master Silverman MD, MD Date Time Electronically viewed and signed by .Master Silverman MD, on 06/02/2017 16:43 .R/
--- NOTE | 2017-06-02 16:46 | RADRPT ---
PROCEDURE: XR Right hip and pelvis. CLINICAL INDICATION: Right hip pain. Pelvic pain. Postop. TECHNIQUE: Three views. Frontal pelvis. Frontal and lateral right hip. COMPARISON: 04/03/2017. FINDINGS: There is no fracture or dislocation. The soft tissues are normal. There is a right hip total arthroplasty which appears satisfactory. There are moderate degenerative changes of the left hip with joint space narrowing and osteophytes. There is no lytic or blastic lesion. The upper pelvis is not completely included on the image. However there is hardware noted in the lum bosacral spine. IMPRESSION: 1. Satisfactory postoperative appearance of the right hip. 2. Moderate degenerative changes of the left hip. 3. Prior lower lumbar sacral spine surgery. RPTAT: QQ .Master Silverman MD, MD Date Time Electronically viewed and signed by .Master Silverman MD, MD on 06/02/2017 16:46 .R/
== END | disposition home or self-care (01) ==
LOC: HKI 13:17
PROVIDERS: ATTEND Orthopaedic Surgery
DX: M25.562 Pain in left knee (principal); M17.12 Unilateral primary osteoarthritis, left knee; Z96.641 Presence of right artificial hip joint
CPT/HCPCS: 73502; 73564; G0463